=== PATIENT | female | born 1955 ===

== ENCOUNTER 2018-11-04 10:25 | Outpatient (CLI) | payer OTHER | END 2018-11-04 10:28 | disposition home or self-care (01) | LOC: SONOGRAMA 10:25 | DX: E04.1 Nontoxic single thyroid nodule (principal) ==

== ENCOUNTER 2023-09-28 12:38 | Outpatient (CLI) | payer OTHER | END 2023-09-28 12:41 | disposition home or self-care (01) | LOC: SONOGRAMA 12:38 | PROVIDERS: ATTEND Pathology Anatomic Pathology & Clinical Pathology | DX: E04.2 Nontoxic multinodular goiter (principal); D44.0 Neoplasm of uncertain behavior of thyroid gland; D34 Benign neoplasm of thyroid gland ==

== ENCOUNTER 2023-11-16 08:30 | Outpatient (CLI) | payer OTHER | END 2023-11-16 08:32 | disposition home or self-care (01) | LOC: SONOGRAMA 08:30 | PROVIDERS: ATTEND Pathology Anatomic Pathology | DX: D34 Benign neoplasm of thyroid gland (principal); E07.89 Other specified disorders of thyroid; E04.2 Nontoxic multinodular goiter; R22.1 Localized swelling, mass and lump, neck ==